=== PATIENT | female | born 1965 | race Caucasian/White ===

== ENCOUNTER 2017-01-15 16:48 | Emergency (ER) | payer OTHER ==
--- NOTE | ~2017-01-15 | CR181 ---
[facility] A Service [facility] RADIOLOGY TEXT RESULTS PATIENT: ELSA YBARRA LOCATION: [facility] : 67 UNIT #: [id number] AGE: [address]: Olivier Verdugo SEX: F ORDER DR: [id number] [place], [place] [address] [id number] MR#: [id number] Acc #: [id number] NAME: ELSA YBARRA : 1965 SEX: F STUDY DATE/TIME: 01/15/2017 18:05 UNIT: [facility] ROOM: STUDY DESCRIPTION: CR Lumbar Spine 2 or 3 Views Attending Physician: Olivier Verdugo Ordering Physician: (Res) Oliiver Verdugo Primary Care Physician: No Primary Care Physician MEDICAL IMAGING REPORT This report is preliminary unless electronic signature is present EXAM Lumbar series. DATE OF EXAM 01/15/2017 INDICATIONS 51-year-old female complaining of mid and lower back pain extending into the right leg for the past week and a half to 2 weeks. No known injury. REPORT 3 views lumbar spine. COMPARISON No comparisons. FINDINGS Vertebral body heights and alignment preserved. No acute fracture. There is mild degenerative disc disease at L4-5 and L5-S1. Mild facet arthropathy at L5-S1. IMPRESSION 1. Mild degenerative change, otherwise, negative. Dictated by... Ben Gardner M.D. THIS IS AN ELECTRONICALLY VERIFIED REPORT Ben Gardner M.D. at 01/15/2017 10:51 PM AUTUMN/bertha TD: 01/15/2017 22:28 JOB #: [id number] [facility] A Service [facility] RADIOLOGY TEXT RESULTS PATIENT: ELSA YBARRA LOCATION: [facility] : 67 UNIT #: [id number] AGE: [address]: Olivier Verdugo SEX: F ORDER DR: MEDICAL IMAGING REPORT Page 1 of 1 COPY
--- NOTE | ~2017-01-15 | CR243 ---
[facility] A Service [facility] RADIOLOGY TEXT RESULTS PATIENT: ELSA YBARRA LOCATION: [facility] : 67 UNIT #: [id number] AGE: [address]: Olivier Verdugo SEX: F ORDER DR: [id number] [address] [address] [id number] E MR#: [id number] Acc #: [id number] NAME: ELSA YBARRA : 1965 SEX: F STUDY DATE/TIME: 01/15/2017 18:12 UNIT: [facility] ROOM: STUDY DESCRIPTION: CR Thoracic Spine 3 Views Attending Physician: Olivier Verdugo Ordering Physician: (Isabel) Olivier Verdugo Primary Care Physician: No Primary Care Physician MEDICAL IMAGING REPORT This report is preliminary unless electronic signature is present EXAM Thoracic series. DATE OF EXAM 01/15/2017 INDICATIONS Mid and lower back pain radiating to the right leg for the past week and a half to 2 weeks. No known injury. REPORT 3 views of the thoracic spine were performed. COMPARISON No comparisons. FINDINGS There is no acute fracture or malalignment. Mild degenerative disc disease in the lower thoracic and upper lumbar levels. There is mild degenerative change in the visualized cervical spine. IMPRESSION 1. Mild degenerative change, otherwise, negative. Dictated by... Ben Gardner M.D. THIS IS AN ELECTRONICALLY VERIFIED REPORT Ben Gardner M.D. at 01/15/2017 10:51 PM Farhat TD: 01/15/2017 22:27 JOB #: [id number] [facility] A Service [facility] RADIOLOGY TEXT RESULTS PATIENT: ELSA YBARRA LOCATION: [facility] : 67 UNIT #: [id number] AGE: [address]: Olivier Verdugo SEX: F ORDER DR: MEDICAL IMAGING REPORT Page 1 of 1 COPY
[2017-01-15 17:58] LABS: URINE SOURCE CLEAN CATCH
[2017-01-15 18:10] LABS: URINE APPEARANCE CLOUDY; URINE BILIRUBIN NEG (NEG); URINE BLOOD NEG (NEG); URINE COLOR YELLOW; URINE GLUCOSE NEG (NEG); URINE KETONE NEG (NEG); URINE LEUKOCYTE ESTERASE NEG (NEG); URINE NITRATE NEG (NEG); URINE PROTEIN NEG (NEG); URINE SPECIFIC GRAVITY 1.017 (1.003-1.035); URINE UROBILINOGEN 0.2 MG/DL (NEG)
[2017-01-15 18:20] LABS: CULTURE INDICATED? NO
== END 2017-01-15 19:41 | disposition home or self-care (01) ==
LOC: CFTX 16:48
PROVIDERS: Nurse Practitioner
DX: M51.36 Other intervertebral disc degeneration, lumbar region (principal); M54.30 Sciatica, unspecified side; F17.210 Nicotine dependence, cigarettes, uncomplicated; F32.9 Major depressive disorder, single episode, unspecified; Z90.710 Acquired absence of both cervix and uterus; Z88.1 Allergy status to other antibiotic agents; Z88.0 Allergy status to penicillin
CPT/HCPCS: 72072; 72100; 81003; 96372; 99284; J1885

== ENCOUNTER 2017-03-05 12:00 | Inpatient (IN) | payer OTHER ==
--- NOTE | ~2017-03-05 | PN ---
Unit #: [id number] #: [id number] Patient: ELSA YBARRA [id number] [facility] [address] [place] [address] [id number] I MR#: [id number] NAME: ELSA YBARRA ROOM: P122 Age: 51 Sex: F Admission Date: 03/05/2017 : 1965 Attending Physician: Umberto Echols M.D. Admitting Physician: Umberto Echols M.D. Primary Care Physician: Primary Care Physician Alma ROMANO PROGRESS NOTES DATE 03/09/2017 DISCUSSION The patient continues to complain of pain and reports feelings that she is suffering from cancer. This would seem to be possibly fixed somatic delusion. She does request reinitiation of previously prescribed Prozac and Effexor and this will be ordered. Dictated by... Umberto Echols M.D. JENNIFER/moira TD: 03/09/2017 12:58 JOB #: [id number] JUAN ANTONIO PROGRESS NOTES Page 1 of 1 X Umberto Echols MD X PROGRESS NOTE
--- NOTE | ~2017-03-05 | DS ---
Unit #: [id number] #: [id number] Patient: ELSA YBARRA [id number] [place] [address] [id number] I MR#: [id number] NAME: ELSA YBARRA ROOM: [facility] Age: 51 Sex: F Admission Date: 03/05/2017 : 1965 Discharge Date: 03/11/2017 Attending Physician: Umberto Echols M.D. Primary Care Physician: Primary Care Physician No DISCHARGE SUMMARY REASON FOR ADMISSION The patient is a 51-year-old white female with a history of methamphetamine abuse, admitted in a state of psychosis. HOSPITAL COURSE The patient was admitted to the [address] [place] [address] unit and placed on suicide precautions. Home medications including estradiol, ibuprofen, Effexor, Prozac, Topamax, and Neurontin were continued. The patient initially presented with the bizarre somatic delusion that she was suffering from multiple myeloma and then she reported that she was suffering from acute lymphocytic anemia and was having bone pain related there too. As her hospitalization progressed, these bizarre symptoms seemed to subside, though there was fixed and somatic quality to them, not consistent with what one would normally see with a methamphetamine-induced psychosis. Whatever the case, the patient's Effexor and Prozac were eventually restarted as were her Topamax and Neurontin, and Geodon 60 mg b.i.d. was added to address psychotic symptoms. By 03/11/2017, the patient requested discharge and it was so ordered. FINAL DIAGNOSES Delusional disorder, somatic type; methamphetamine use disorder. DISPOSITION ON DISCHARGE The patient is discharged on the following medications: Neurontin 600 mg t.i.d. for mood stabilization, Desyrel 50 mg at h.s. p.r.n. insomnia, Topamax 100 mg b.i.d. for anxiety, Motrin 800 mg q.8 hours p.r.n. pain, Estrace 1 mg daily for hormonal supplementation, Geodon 60 mg b.i.d. for psychosis, Prozac 40 mg daily for depression, Effexor XR 225 mg daily for depression. DISCHARGE INSTRUCTIONS No dietary or physical restrictions were placed upon the patient at the time of discharge. FOLLOWUP Followup will take place the [facility]uspices of [facility] mental [facility] resources. PROGNOSIS The patient's prognosis is considered fair. Dictated by... Umberto Echols M.D. Unit #: [id number] #: [id number] Patient: ELSA YBARRA JENNIFER/ryan TD: 03/11/2017 15:22 JOB #: [id number] DISCHARGE SUMMARY Page 1 of 1 X Umberto Echols MD X DISCHARGE SUMMARY
--- NOTE | ~2017-03-05 | HP ---
Unit #: [id number] #: [id number] Patient: ELSA YBARRA [id number] [place] [address] [id number] I MR#: [id number] NAME: ELSA YBARRA ROOM: [facility] Age: 51 Sex: F Admission Date: 03/05/2017 : 1965 Attending Physician: Umberto Echols M.D. Admitting Physician: Umberto Echols M.D. Primary Care Physician: Primary Care Physician No HISTORY AND PHYSICAL HISTORY OF PRESENT ILLNESS Elsa is a 51 year old admitted to [address] [place] [address] with psychotic behavior. She is a poor historian so her history is taken from her chart. PAST MEDICAL HISTORY Nothing significant. PAST SURGICAL HISTORY Hysterectomy. ALLERGIES Penicillin, Compazine, Inapsine. SOCIAL HISTORY Smokes 1 pack per day. Describes herself as a binge drinker and has a history of snorting heroin and shooting methamphetamine. FAMILY HISTORY Medically not known. REVIEW OF SYSTEMS She does not answer questions appropriately. There are no reports of nausea, vomiting or diarrhea. She has had no cough or increased temperature. CURRENT MEDICATIONS 1. Effexor XR 75 mg q.h.s. 2. Desyrel 50 mg q.h.s. 3. Topamax 100 mg b.i.d. 4. Ibuprofen p.r.n. 5. Neurontin 600 mg t.i.d. 6. Naproxen 500 mg q. 8 hours p.r.n. 7. Milk of Magnesia p.r.n. 8. Maalox p.r.n. 9. Tylenol p.r.n. 10. Estrace 1 mg daily. 11. Prozac 40 mg daily. 12. Nicotine patch 7 mg daily. PHYSICAL EXAMINATION GENERAL: Alert, well-nourished, in no apparent distress. VITAL SIGNS: Blood pressure 116/72, heart rate 80, respirations 16, temperature 98.6. Unit #: [id number] #: [id number] Patient: ELSA YBARRA WEIGHT: 182. HEIGHT: 5 feet 6 inches. SKIN: Warm and dry without rash or lesion. HEENT: Normocephalic. TMs not viewed. Oral and nasal passages clear. Conjunctivae clear. PERRLA. EOMs intact. NECK: Supple without lymphadenopathy or thyromegaly. HEART: Regular rate and rhythm without murmur. LUNGS: Clear. ABDOMEN: Soft, nontender. : Not done. EXTREMITIES: No evidence of cyanosis, clubbing or edema. Moves all without focal deficit. NEUROLOGICAL: Unable to complete extended exam. She does move all extremities without focal deficit. Hand hose tubing backer is equal and gait is normal. IMPRESSION Psychiatric admission. RECOMMENDATIONS PSYCHIATRIC: Per psychiatrist. MEDICAL: See no contraindication to participate in facility's activities. MEDICAL PROGNOSIS Good. MEDICAL CONDITION Stable. Dictated by... Irasema Rubio P.A.-C. for Deion Aldridge/moira TD: 03/06/2017 20:13 JOB #: [id number] HISTORY AND PHYSICAL Page 1 of 1 X Irasema Rubio X HISTORY AND PHYSICAL
--- NOTE | ~2017-03-05 | PN ---
Unit #: [id number] #: [id number] Patient: ELSA YBARRA [id number] [facility] [address] [place] [address] [id number] I MR#: [id number] NAME: ELSA YBARRA ROOM: P122 Age: 51 Sex: F Admission Date: 03/05/2017 : 1965 Attending Physician: Umberto Echols M.D. Admitting Physician: Umberto Echols M.D. Primary Care Physician: Primary Care Physician Alma ROMANO PROGRESS NOTES DATE 03/07/2017 DISCUSSION The patient is abed today. Staff reports that she remains somatically delusional and now reporting that she has acute lymphocytic leukemia after yesterday claiming to have multiple myeloma. We continue aggressive pharmacotherapy. Dictated by... Umberto Echols M.D. CB/moira TD: 03/07/2017 17:40 JOB #: [id number] JUAN ANTONIO PROGRESS NOTES Page 1 of 1 X Umberto Echols MD PROGRESS NOTE
--- NOTE | ~2017-03-05 | PN ---
Unit #: [id number] #: [id number] Patient: ELSA YBARRA [id number] [facility] [address] [place] [address] [id number] I MR#: [id number] NAME: ELSA YBARRA ROOM: P122 Age: 51 Sex: F Admission Date: 03/05/2017 : 1965 Attending Physician: Umberto Echols M.D. Admitting Physician: Umberto Echols M.D. Primary Care Physician: Primary Care Physician Alma ROMANO PROGRESS NOTES DATE 03/08/2017 DISCUSSION The patient persist with her belief that she has cancer and remains somatically preoccupied and paranoid. She remains seclusive to room. We continue current treatment but further upward titration of antipsychotic medication may need to be considered. Dictated by... Umberto Echols M.D. CB/moira TD: 03/08/2017 16:10 JOB #: [id number] JUAN ANTONIO LI NOTES Page 1 of 1 X Umberto Echols MD PROGRESS NOTE
--- NOTE | ~2017-03-05 | PN ---
Unit #: [id number] #: [id number] Patient: ELSA YBARRA [id number] [facility] [address] [place] [address] [id number] I MR#: [id number] NAME: ELSA YBARRA ROOM: P122 Age: 51 Sex: F Admission Date: 03/05/2017 : 1965 Attending Physician: Umberto Echols M.D. Admitting Physician: Umberto Echols M.D. Primary Care Physician: Primary Care Physician Alma ROMANO PROGRESS NOTES DATE 03/10/2017 DISCUSSION The patient continues to show reduction in somatic delusionality leaving this physician to believe that her symptoms were probably methamphetamine induced despite the patient's claim that she has not recently relapsed. Should she sustain progress discharge back to her snf house will take place tomorrow. Dictated by... Umberto Echols M.D. CB/matt TD: 03/10/2017 22:22 JOB #: [id number] [facility] PROGRESS NOTES Page 1 of 1 X Umberto Echols MD X PROGRESS NOTE
--- NOTE | ~2017-03-05 | PA ---
Unit #: [id number] #: [id number] Patient: ELSA YBARRA [id number] [place] [address] [id number] MR#: [id number] NAME: ELSA YBARRA ROOM: [facility] Age: 51 Sex: F Admission Date: 03/05/2017 : 1965 Date of Assessment: 03/06/2017 Attending Physician: Umberto Echols M.D. Admitting Physician: Umberto Echols M.D. Primary Care Physician: Primary Care Physician No PSYCHIATRIC ASSESSMENT IDENTIFYING INFORMATION The patient is a 51-year-old white female admitted after presenting to this facility responding to internal stimuli. INFORMANT(S) Patient and chart. RELIABILITY Fair. CHIEF COMPLAINT "I think I have multiple myeloma." HISTORY OF PRESENT ILLNESS The patient is a 51-year-old white female admitted yesterday after presenting to this facility reporting positive auditory hallucinations. She was noted during evaluation yesterday and during today's evaluation to be responding to internal stimuli. Patient had also reported that she feels as though she may be suffering from multiple myeloma and has had a morphine pump implanted in her spine. The patient reports an extensive substance abuse history. She is minimizing her current substance abuse with reports that she used methamphetamine "in December of 2016." She is currently residing at [facility] and is in a group home house program related to multiple incarcerations on prescription fraud charges. The patient reports that she was last discharged on 10/01/2016. The patient denies that she has been using psychoactive substances though today's presentation would seem to indicate otherwise. The patient is currently prescribed Effexor, Prozac, Topamax, and [facility] She complains of chronic back pain. PAST PSYCHIATRIC HISTORY The patient does have an extensive substance abuse history and has been prescribed as noted previously Prozac, Effexor and [facility]. FAMILY HISTORY Noncontributory. SOCIAL HISTORY The patient is originally from [facility] but is currently residing in a [facility] after having been released from snf in September of this year. She denies current substance abuse but does admit to an extensive substance abuse history and has been incarcerated in the past on Unit #: [id number] #: [id number] Patient: ELSA YBARRA prescription fraud charges. MEDICAL HISTORY Significant for history of back pain. MEDICATION HISTORY 1. Naproxen. 2. Neurontin. 3. Topamax. 4. Prozac. 5. Effexor XR. ALLERGIES Penicillin, Inapsine, Compazine. MENTAL STATUS EXAM At this time, reveals the patient to be a well-developed, well-nourished white female appearing her stated age. She is in no apparent physical distress at time of examination. She is awake, alert, oriented in all spheres. Her mood is irritable. Her affect labile. Speech is generally relevant and coherent. There are no gross deficits in memory or cognition noted. Intelligence is judged to be in the average range based on fund of knowledge. The patient is less than optimally cooperative during interview. She is currently denying suicidal/homicidal ideation. She does report positive auditory hallucinations as well as somatic delusional thinking and does appear to be responding to internal stimuli. Her judgement and insight appear to be significantly impaired. ASSETS AND LIABILITIES Patient's assets to be assessed. Liabilities, sociopathy, lack of resources. ADMITTING DIAGNOSES 1. Methamphetamine use disorder. 2. Psychotic disorder, unspecified. 3. Mood disorder, unspecified. 4. History of back pain. PSYCHIATRIC PLAN/TREATMENT GOALS The patient remains hospitalized for safety and stabilization. Home medications have been continued but I will discontinue Prozac and Effexor given the patient's current symptoms of psychosis. Geodon 40 mg b.i.d. will be initiated. It will remain to be seen whether the patient's current symptoms are in fact substance induced which I suspect or perhaps the result of a bipolar manic or decompensation of a psychotic illness. ESTIMATED LENGTH OF STAY Seven to ten days. Dictated by... Umberto Echols M.D. JENNIFER/moira TD: 03/06/2017 15:09 Unit #: [id number] #: [id number] Patient: ELSA YBARRA JOB #: [id number] PSYCHIATRIC ASSESSMENT Page 1 of 1 X Umberto Echols MD X PSYCHIATRIC ASSESSMENT
[2017-03-06 09:38] LABS: BASOPHIL# 0.1 X10e3 (0-0.3); BASOPHIL% 1.1 % (0-2.5); EOSINOPHIL# 0.5 X10e3 (0-0.7); EOSINOPHIL% 7.9 % (0.0-7.0); HEMATOCRIT 41.2 % (35.0-45.0); HEMOGLOBIN 13.2 gm/dL (12.0-16.0); LYMPHOCYTE# 1.7 X10e3 (1.0-3.5); LYMPHOCYTE% 30.2 % (17.0-45.0); MEAN CELL VOLUME 89.1 FL (83-96); MEAN CORPUSCULAR HEMOGLOBIN 28.6 PG (28-34); MEAN CORPUSCULAR HGB CONC 32.1 g/dL (30-36); MEAN PLATELET VOLUME 8.6 FL (6.5-11.5); MONOCYTE# 0.6 X10e3 (0-1.0); MONOCYTE% 9.9 % (3.0-12.0); NEUTROPHIL# 2.9 X10e3 (1.5-7.1); NEUTROPHIL% 50.9 % (40-75); PLATELET COUNT 186 X10e3 (140-420); RED BLOOD COUNT 4.63 X10e (3.90-5.30); RED CELL DISTRIBUTION WIDTH 15.7 % (11.0-15.5); WHITE BLOOD COUNT 5.7 X10e3 (4.0-10.5)
[2017-03-06 09:40] LABS: DIFF IND NO
[2017-03-07 10:05] LABS: ALBUMIN SERUM 4.2 g/dL (3.5-5.0); BILIRUBIN,TOTAL 0.3 mg/dL (0.2-2.0); BUN/CREATININE RATIO 18.75; CALCIUM SERUM 9.5 mg/dL (8.4-10.2); CREATININE SERUM 0.8 mg/dL (0.6-1.4); POTASSIUM 4.3 mmol/L (3.5-5.1); PROTEIN TOTAL SERUM 7.2 g/dL (6.0-8.3)
== END 2017-03-11 16:02 | disposition home or self-care (01) | DRG 897 ==
LOC: P1S 14:46
PROVIDERS: Specialist
DX: F15.20 Other stimulant dependence, uncomplicated (principal); F39 Unspecified mood [affective] disorder; F29 Unspecified psychosis not due to a substance or known physiological condition; F17.210 Nicotine dependence, cigarettes, uncomplicated; Z88.0 Allergy status to penicillin
CPT/HCPCS: 80053; 85025; J3486